=== PATIENT | female | born 1985 | race Caucasian/White ===

== ENCOUNTER 2017-04-12 10:21 | Emergency (ER) | payer OTHER ==
[~2017-04-12] VITALS: Ht 147.3 cm; Wt 72.4 kg
[~2017-04-12 10:21] MED LIST: IBUP-1222 PO; NITR100C56 PO; OXYC-302 PO; PREN1TAB60 PO; VALA500T4 PO
[2017-04-12 11:46] LABS: HEMATOCRIT 44.2 % (34.6-47.8); HEMOGLOBIN 15.1 g/dL (11.7-16.4); WHITE BLOOD COUNT 6.9 x10^3/uL (3.4-10)
[2017-04-12 11:54] LABS: ASPARTATE AMINO TRANSFERASE 18 U/L (15-37); BLOOD UREA NITROGEN 19 mg/dL (7-18)
[2017-04-12 12:42] VITALS: BP 118/58
== END 2017-04-12 13:34 | disposition home or self-care (01) ==
LOC: ED 10:54
DX: M54.5 Low back pain (principal); R10.9 Unspecified abdominal pain
CPT/HCPCS: 36415; 72110; 80053; 81001; 83690; 84703; 85025; 87086; 99285